=== PATIENT | female | born 1985 | race Caucasian/White ===

== ENCOUNTER 2020-06-19 01:13 | Emergency (ER) | payer BC, MEDICAID, SELFPAY ==
[2020-06-19 01:17] VITALS: BP 110/85; PULSE 96; RESP 16; TEMP 36.2; O2SAT 100
--- NOTE | 2020-06-19 01:26 | ED.GENADULT ---
HPI - General Adult General Chief complaint: Eye Problems Stated complaint: eye issues Time Seen by Provider: 06/19/20 01:16 History of Present Illness HPI narrative: Patient is a 34-year-old female who presents the emergency department with chief complaint of right eye pain. Patient reports that several days ago she noticed that her eye started getting irritated. 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 Patient denies fever denies chills reports that her eye is watering and it feels very irritated. Related Data Allergies Allergy/AdvReac Type Severity Reaction Status Date / Time adhesive Allergy Mild Rash Verified 06/19/20 01:21 amoxicillin Allergy Unknown Skin Verified 06/19/20 01:21 Reaction cephalexin Allergy Unknown Nausea Verified 06/19/20 01:21 Cephalosporins Allergy Unknown DIARRHEA Verified 06/19/20 01:21 metformin Allergy Unknown forgetfulness, Verified 06/19/20 01:21 lack of strength nitrofurantoin Allergy Unknown Nausea Verified 06/19/20 01:21 oseltamivir Allergy Unknown Nausea Verified 06/19/20 01:21 Penicillins Allergy Unknown HIVES, Verified 06/19/20 01:21 THROAT ITCHING vancomycin Allergy Unknown Unknown Verified 06/19/20 01:21 OSELTAMIVIR PHOSPHATE Allergy Unknown VOMITING Uncoded 06/19/20 01:21 Review of Systems Review of Systems: Narrative: A 10 system review of systems was completed on the patient and is negative except for what is stated in the HPI. Nursing and ancillary documentation was reviewed. [facility] Social History Social History Smoking status: Smoker, status unknown Alcohol intake: current Comments Patient has past medical history significant for corneal ulcer Social history the patient reports that she smokes cigarettes denies illicit drug use Exam Narrative: Exam Narrative: GENERAL: Well-appearing, well-nourished, and in no acute distress. HEAD: Normocephalic, atraumatic. EYES: PERRLA and EOMI. the right conjunctivois injected that there is a small corneal ulcer present at the 1 o'clock position ENT: Nares clear, no rhinorrhea or epistaxis. Mucous membranes moist. NECK: Supple. CHEST: Clear to auscultation. No respiratory distress. HEART: Regular rate and rhythm. No murmur heard. Normal peripheral pulses. ABDOMEN: Soft, nontender, nondistended, normal active bowel sounds. EXTREMITIES: Normal range of motion. No edema. SKIN: Warm, dry, no rash. NEURO: No focal deficits. Alert and oriented x3. PSYCH: Normal mood and affect. Course Vital Signs Vital signs: Vital Signs Temperature 36.2 C L 06/19/20 01:17 Pulse Rate 96 06/19/20 01:17 Respiratory Rate 16 06/19/20 01:17 Blood Pressure 110/85 06/19/20 01:17 Pulse Oximetry 100 06/19/20 01:17 Temperature 36.2 C L 06/19/20 01:17 Pulse Rate 96 06/19/20 01:17 Respiratory Rate 16 06/19/20 01:17 Blood Pressure 110/85 06/19/20 01:17 Pulse Oximetry 100 06/19/20 01:17 Medical Decision Making Vital Signs Vital Signs: Vital Signs Temperature 36.2 C L 06/19/20 01:17 Pulse Rate 96 06/19/20 01:17 Respiratory Rate 16 06/19/20 01:17 Blood Pressure 110/85 06/19/20 01:17 Pulse Oximetry 100 06/19/20 01:17 Temperature 36.2 C L 06/19/20 01:17 Pulse Rate 96 06/19/20 01:17 Respiratory Rate 16 06/19/20 01:17 Blood Pressure 110/85 06/19/20 01:17 Pulse Oximetry 100 06/19/20 01:17 Discharge Plan Discharge Clinical Impression: Conjunctivitis Qualifiers: Conjunctivitis type: acute Acute conjunctivitis type: unspecified Laterality: right Qualified Code(s): H10.31 - Unspecified acute conjunctivitis, right eye Corneal ulcer Qualifiers: Laterality: right Qualified Code(s): H16.001 - Unspecified corneal ulcer, right ey
[2020-06-19] MEDS: GENTAMICIN SULFATE 0.3% OP SOL 5 ML BTL 1 DROP RIGHT EYE (01:41)
--- NOTE | 2020-06-19 01:46 | PC.NURSE ---
Patient requesting to wait to be discharged to ensure she does not have a reaction to the antibiotic.
== END 2020-06-19 02:04 | disposition home or self-care (01) ==
LOC: ANHED 01:33
PROVIDERS: Emergency Provider Emergency Medicine
DX: H10.31 Unspecified acute conjunctivitis, right eye (principal); H16.001 Unspecified corneal ulcer, right eye
CPT/HCPCS: 99283; A9270

== ENCOUNTER 2023-02-13 09:42 | Emergency (ER) | payer BC, SELFPAY ==
--- NOTE | 2023-02-13 09:54 | ED.URI ---
HPI - URI/Sore Throat General Chief Complaint: Upper Respiratory Infection Stated Complaint: Sinus Time Seen by Provider: 02/13/23 09:54 Source: patient Mode of arrival: ambulatory Limitations: no limitations History of Present Illness HPI Narrative: Patient is a 37-year-old female who presents with 3 days of sinus pain, pressure. States she has taken TheraFlu, Tylenol cold and flu and Zyrtec with no relief. Denies any ear pain, sore throat, cough, fever, chills, nausea, vomiting, diarrhea. Does report unresolved headache from sinus pressure. Related Data Allergies Allergy/AdvReac Type Severity Reaction Status Date / Time adhesive Allergy Mild Rash Verified 02/13/23 09:44 amoxicillin Allergy Unknown Skin Verified 02/13/23 09:44 Reaction cephalexin Allergy Unknown Nausea Verified 02/13/23 09:44 Cephalosporins Allergy Unknown DIARRHEA Verified 02/13/23 09:44 metformin Allergy Unknown forgetfulness, Verified 02/13/23 10:02 lack of strength nitrofurantoin Allergy Unknown Nausea Verified 02/13/23 09:44 oseltamivir Allergy Unknown Nausea Verified 02/13/23 09:44 Penicillins Allergy Unknown HIVES, Verified 02/13/23 09:44 THROAT ITCHING vancomycin Allergy Unknown Unknown Verified 02/13/23 09:44 OSELTAMIVIR PHOSPHATE Allergy Unknown VOMITING Uncoded 02/13/23 09:44 Review of Systems Review of Systems: All systems reviewed & are unremarkable except as noted in HPI and below Constitutional: Constitutional: Denies body ache(s), Denies chills, Denies fatigue, Denies fever(s), Reports headache(s), Denies malaise and Denies weakness Eyes: Eyes: Denies blurry vision, Denies itchy eyes and Denies loss of vision ENT: Denies otalgia, Denies headache(s), Reports nasal congestion, Reports sinus pain, Reports sinus pressure and Denies sore throat Cardiovascular: Cardiovascular: Denies chest pain, Denies irregular heart rhythm and Denies dyspnea Respiratory: Respiratory: Denies cough and Denies dyspnea Gastrointestinal: Gastrointestinal: Denies abdominal pain, Denies diarrhea, Denies nausea and Denies vomiting Musculoskeletal: Musculoskeletal: Denies back pain, Denies myalgias and Denies arthralgias Integumentary/Breasts: Skin/Breast: Denies pruritus and Denies rash Neurologic: Denies headache(s), Denies loss of vision and Denies weakness Psychiatric: Psychiatric: Reports no additional psychiatric complaints Endocrine: Endocrine: Denies fatigue Allergic/Immunologic: Allergic/Immunologic: Denies itchy eyes PMFSH Social History Social History Smoking status: Smoker, status unknown Alcohol intake: current Comments At time of signature, agree with nursing past medical, surgical, social and family history. There is no relevant family history pertinent to the presenting complaint. Exam Const: General: cooperative, healthy appearing, comfortable, no acute distress and well nourished Nutritional Appearance: well nourished Orientation/consciousness: patient oriented x3 Limitations: no limitations HENMT: Head: normal to inspection, normocephalic and atraumatic Ears: hearing grossly normal bilaterally, external ears normal, TM's normal bilaterally, EAC's normal and no periauricular adenopathy Face/Nose/Sinus: Normal external nose present, Abnormal mucous membranes and turbinates present erythematous bilateral and diffuse, normal facial exam, face symmetric and Facial tenderness on exam of face and sinuses Face and sinus: normal facial exam, sinuses nontender and face symmetric Mouth: Yes Normal oral and palatal mucosa present, Yes lip normal, Yes tongue normal, Yes Normal salivary glands and ducts present, Yes oropharynx normal and Yes moist mucous membranes Teeth and gingiva: dentition normal Throat: posterior oropharynx normal, tonsils normal and uvula midline Eyes: General: appearance normal, both eyes and all related structures Alignment and Position: alig
[2023-02-13 10:00] VITALS: BP 119/82; PULSE 96; RESP 18; TEMP 37.1; O2SAT 100
== END 2023-02-13 10:10 | disposition home or self-care (01) ==
PROVIDERS: Emergency Provider Nurse Practitioner Family; PCP Family Medicine
DX: J01.00 Acute maxillary sinusitis, unspecified (principal); N80.9 Endometriosis, unspecified
CPT/HCPCS: 99213; G0463

== ENCOUNTER 2023-02-21 08:45 | Emergency (ER) | payer BC, SELFPAY ==
--- NOTE | 2023-02-21 08:55 | ED.URI ---
HPI - URI/Sore Throat General Chief Complaint: Upper Respiratory Infection Stated Complaint: Sinus Problems Time Seen by Provider: 02/21/23 08:59 Source: patient, RN notes reviewed and old records reviewed Mode of arrival: ambulatory Limitations: no limitations History of Present Illness HPI Narrative: 37-year-old female presents to the [facility] for sinus issues. Was evaluated on the 13 of February, 8 days ago, prescribed doxycycline. States that she finished her doxycycline. Is taking Zyrtec. Patient states she started coughing more frequently. Related Data Home Medications Medication Instructions Recorded Confirmed cetirizine 10 mg capsule (Zyrtec) 10 mg PO DAILY 02/21/23 02/21/23 Allergies Allergy/AdvReac Type Severity Reaction Status Date / Time adhesive Allergy Mild Rash Verified 02/13/23 09:44 amoxicillin Allergy Unknown Skin Verified 02/13/23 09:44 Reaction cephalexin Allergy Unknown Nausea Verified 02/13/23 09:44 Cephalosporins Allergy Unknown DIARRHEA Verified 02/13/23 09:44 metformin Allergy Unknown forgetfulness, Verified 02/13/23 10:02 lack of strength nitrofurantoin Allergy Unknown Nausea Verified 02/13/23 09:44 oseltamivir Allergy Unknown Nausea Verified 02/13/23 09:44 Penicillins Allergy Unknown HIVES, Verified 02/13/23 09:44 THROAT ITCHING vancomycin Allergy Unknown Unknown Verified 02/13/23 09:44 OSELTAMIVIR PHOSPHATE Allergy Unknown VOMITING Uncoded 02/13/23 09:44 Review of Systems Review of Systems: All systems reviewed & are unremarkable except as noted in HPI and below Constitutional: Constitutional: Reports no additional constitutional complaints Eyes: Eyes: Reports no additional eye complaints ENT: Reports as per HPI Cardiovascular: Cardiovascular: Reports no additional cardiovascular complaints, Denies chest pain and Denies dyspnea Respiratory: Respiratory: Reports as per HPI, Denies chest congestion, Reports cough and Denies dyspnea Gastrointestinal: Gastrointestinal: Reports no additional gastrointestinal complaints, Denies abdominal pain, Denies nausea and Denies vomiting Musculoskeletal: Musculoskeletal: Reports no additional musculoskeletal complaints Integumentary/Breasts: Skin/Breast: Reports system reviewed and no additional complaints, except as docu Neurologic: Reports system reviewed and no additional complaints, except as documented Psychiatric: Psychiatric: Reports no additional psychiatric complaints Allergic/Immunologic: Allergic/Immunologic: Reports no additional allergic/immunologic complaints PMFSH Social History Social History (Reviewed 02/21/23 @ 19:29 by GUERDA Young Smoking status: Smoker, status unknown Alcohol intake: current Comments At the time of my signature, I reviewed and agree with the nursing past medical, surgical, social, and family history. There is no relevant family history pertinent to the patient complaint. Exam Const: General: cooperative, healthy appearing, comfortable, no acute distress, well developed, alert and well nourished Nutritional Appearance: well nourished Orientation/consciousness: patient oriented x3 Limitations: no limitations HENMT: Head: normal to inspection Ears: hearing grossly normal bilaterally, external ears normal, TM's normal bilaterally and EAC's normal Face/Nose/Sinus: Normal external nose present, Normal nares present, Normal nasal mucous membranes and turbinates present, normal facial exam and face symmetric Face and sinus: normal facial exam and face symmetric Mouth: Yes Normal oral and palatal mucosa present, Yes lip normal and Yes moist mucous membranes Throat: posterior oropharynx normal, uvula midline and postnasal drainage Eyes: General: appearance normal, both eyes and all related structures Alignment and Position: alignment normal Periorbital: periorbital findings normal Pupils: Equal, round and reactive pupils present EOM: EOMs intact bilaterally Neck:
[2023-02-21 08:58] VITALS: BP 127/88; PULSE 90; RESP 18; TEMP 36.9; O2SAT 100
== END 2023-02-21 09:18 | disposition home or self-care (01) ==
PROVIDERS: Emergency Provider Nurse Practitioner
DX: J40 Bronchitis, not specified as acute or chronic (principal); J01.90 Acute sinusitis, unspecified
CPT/HCPCS: 99213; G0463

== ENCOUNTER 2023-07-04 14:53 | Outpatient (CLI) | payer BC, SELFPAY ==
--- NOTE | ~2023-07-04 | MM_ITS ---
EXAMINATION: MM screening raquel BI w jason HISTORY: Screening mammogram TECHNIQUE: Craniocaudal and mediolateral oblique 3-D tomosynthesis images were obtained and synthetic 2-D images were generated. CAD analysis was submitted and interpreted. COMPARISON: No prior mammogram is available for comparison at this institution. BREAST PARENCHYMAL COMPOSITION: There are scattered areas of fibroglandular density. FINDINGS: There is no evidence of suspicious mass, calcification, or architectural distortion to sugg est malignancy in either breast. There has been no suspicious interval change. IMPRESSION: 1. No mammographic evidence of malignancy. 2. Recommend routine screening mammography in one year. BI-RADS Category 1: Negative Reviewed, dictated and finalized at location A. [employer]
== END 2023-07-04 14:54 ==
PROVIDERS: PCP Family Medicine; Visit Provider Family Medicine
DX: Z12.31 Encounter for screening mammogram for malignant neoplasm of breast (principal)
CPT/HCPCS: 77063; 77067

== ENCOUNTER 2023-10-01 15:48 | Outpatient (CLI) | payer BC, SELFPAY ==
--- NOTE | ~2023-10-01 | XR_ITS ---
AP view of the pelvis and AP and lateral views of the bilateral hips Clinical history: Pain Findings: No acute fracture or dislocation is seen. Osseous alignment is anatomic. Bilateral hip and SI joint spaces are preserved. Soft tissues are unremarkable. Impression: No significant abnormality is seen. Reviewed, dictated and finalized at location . Impression: No significant abnormality is seen.
== END 2023-10-01 15:49 ==
PROVIDERS: PCP Family Medicine; Visit Provider Family Medicine
DX: M25.551 Pain in right hip (principal); M25.552 Pain in left hip
CPT/HCPCS: 73521

== ENCOUNTER 2024-01-16 14:45 | Emergency (ER) | payer BC, SELFPAY ==
[2024-01-16 15:03] VITALS: BP 112/64; PULSE 72; RESP 16; TEMP 36.5; O2SAT 99
[2024-01-16 15:08] LABS: EDUAAPPEAR Clear; EDUABILI Negative (Negative); EDUABLOOD Trace (Negative); EDUACOLOR1 Yellow; EDUAGLUCOSE Negative (Negative); EDUAKETONE Negative (Negative); EDUALEUKO 1+ (Negative); EDUANITRATE Negative (Negative); EDUAPH 5.5; EDUAPROTEIN Negative (Negative); EDUAUROBILI 0.2
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
== END 2024-01-16 15:44 | disposition home or self-care (01) ==
PROVIDERS: Emergency Provider Nurse Practitioner Family; PCP Family Medicine
DX: N39.0 Urinary tract infection, site not specified (principal); F17.210 Nicotine dependence, cigarettes, uncomplicated; K76.0 Fatty (change of) liver, not elsewhere classified
CPT/HCPCS: 81003; 87086; 87088; 99213; G0463

== ENCOUNTER 2024-03-21 12:45 | Emergency (ER) | payer BC, SELFPAY ==
--- NOTE | ~2024-03-21 | XR_ITS ---
EXAMINATION: XR chest 2V DATE: 03/21/2024 13:19 INDICATION: Shortness of breath and cough TECHNIQUE: frontal and lateral views of the chest were obtained. COMPARISON: None FINDINGS: The lungs are clear with no focal airspace opacities, pulmonary edema, pleural effusion or pneumothor ax. The cardiomediastinal silhouette is normal. Mild thoracic spondylosis. IMPRESSION: 1. No acute cardiopulmonary disease. Reviewed, dictated and finalized at location A. EW SPECIALIST
[2024-03-21 12:53] VITALS: BP 120/71; PULSE 110; RESP 18; TEMP 37; O2SAT 100
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
== END 2024-03-21 13:55 | disposition home or self-care (01) ==
PROVIDERS: Emergency Provider Nurse Practitioner; PCP Family Medicine
DX: J06.9 Acute upper respiratory infection, unspecified (principal); F17.210 Nicotine dependence, cigarettes, uncomplicated; K76.0 Fatty (change of) liver, not elsewhere classified
CPT/HCPCS: 71046; 99213; G0463

== ENCOUNTER 2024-10-15 00:58 | Emergency (ER) | payer BC, SELFPAY ==
--- NOTE | ~2024-10-15 | XR_ITS ---
Clinical Indication: Cough PA and lateral views of the chest: Comparison: 03/21/2024 Findings: The lungs are clear, without evidence of focal consolidation or pleural effusion. Cardiome diastinal silhouette is within normal limits. Bones and soft tissues are unremarkable. Impression: Normal chest. Reviewed, dictated and finalized at location . Impression: Normal chest.
--- OUTSIDE RECORDS SUMMARY | 2024-10-15 01:00 | XMS_ITS | Clinical Summary ---
Author Organization [facility] Address [address] [place] [address] Care Team Providers Care Quality Improvement Consultant Name Role Phone Diane Christie MD Primary Care Provider [phone] Allergies Active Allergy Reactions Criticality Noted Date Comments Cephalosporins Diarrhea,Nausea and Vomiting Low 03/10/2020 Nitrofurantoin Nausea and Vomiting Low 03/10/2020 Reaction: SEVERE VOMITTING AND DIARRHEA, Nitrofurantoin Monohyd/M-Cryst Nausea and Vomiting Low 11/13/2023 Oseltamivir Nausea and Vomiting Low 11/13/2023 Penicillins Hives High 03/10/2020 Vancomycin Anaphylaxis High 03/10/2020 Reaction: ANAPHYLAXIS Medications tramadol HCl/acetaminophe n (TRAMADOL-ACETAM INOPHEN ORAL) Take 25 mg by mouth every 8 hours as needed. Active cyclobenzaprine (FLEXERIL) 5 mg Tablet Take 5 mg by mouth 3 times daily as needed for Spasm. Active Active Problems No known active problems Encounters Date Type Department Care Team Description 10/12/2024 External Device Data [facility] Provider, Abstract 09/21/2024 External Device Data [facility] Provider, Abstract 09/21/2024 External Device Data [facility] Provider, Abstract 09/15/2024 External Device Data [facility] Provider, Abstract 09/14/2024 External Device Data [facility] Provider, Abstract 08/10/2024 External Device Data [facility] Provider, Abstract 07/27/2024 External Device Data [facility] Provider, Abstract from Last 3 Months Family History Medical History Relation Name Comments No Known Problems Child 1 No Known Problems Child 2 No Known Problems Father Diabetes Mother No Known Problems Sister Relation Name Status Comments Child 1 Alive Child 2 Alive Father Alive Mother Alive Sister Alive Social History Tobacco Use Types Packs/Day Years Used Date Smoking Tobacco: Every Day Cigarettes 0.5 6.4 Started: 05/14/2018 Alcohol Use Standard Drinks/Week Comments Yes 0 (1 standard drink = 0.6 oz pur e alcohol) socially Comments Unknown Sex and Gender Information Value Date Recorded Sex Assigned at Not on file Legal Sex Female 1:01 PM CDT Gender Identity Not on file Sexual Orientation Not on file Last Filed Vital Signs Vital Sign Reading Time Taken Comments Blood Pressure 121/69 11/13/2023 10:44 AM CDT Pulse 110 11/13/2023 10:44 AM CDT Temperature 36.8 C (98.2 F) 11/13/2023 10:44 AM CDT Respiratory Rate - - Oxygen Saturation 96% 11/13/2023 10:44 AM CDT Inhaled Oxygen Concentration - - Weight 83.9 kg (185 lb) 11/13/2023 10:44 AM CDT Height 162.6 cm (5' 4) 11/13/2023 10:44 AM CDT Body Mass Index 31.76 11/13/2023 10:44 AM CDT Plan of Treatment Health Maintenance Due Date Last Done Comments Pre-Diabetes and Diabetes Screening 1984 DTAP/TDAP/TD VACCINES (1 - Tdap) 09/29/2003 HEPATITIS B VACCINES (1 of 3 - 19+ 3-dose series) 09/29/2003 HPV/Cotest (21-29) 2005 CERVICAL CANCER SCREENING 2014 HPV/Cotest (30-65) 2014 PAP SMEAR 2014 INFLUENZA VACCINE (#1) 2023 BREAST CANCER SCREENING 2024 HPV VACCINES Aged Out No longer eligi ble based on patient's age to complete this topic Insurance BCBS BLUE ACCESS/TRUE BLUE PPO Care Teams Quality Improvement Consultant Relationship Specialty Start Date End Date Diane Christie MD [facility] [address] [id number] PCP - General Family Practice 10/22/23
--- OUTSIDE RECORDS SUMMARY | 2024-10-15 01:00 | XMS_ITS | Encounter Summary ---
Author Organization [facility] Address [address] [place] [address] Care Team Providers Care Health Information Technologist Name Role Phone Diane Christie MD Primary Care Provider [phone] Encounter Details Date Type Department Care Team (Late st Contact Info) Description 10/12/2024 External Device Data [facility] Provider, Abstract NO ADDRESS ON FILE Social History Tobacco Use Types Packs/Day Years [...] on file Sexual Orientation Not on file documented as of this encounter Plan of Treatment Not on file documented as of this encounter Visit Diagnoses Not on filedocumented in this encounter Care Teams Health Information Technologist Relationship Specialty Start Date End Date Diane Christie MD [facility] [address] [place] [phone] PCP - General Family Practice 10/22/23 documented as of this encounter
--- OUTSIDE RECORDS SUMMARY | 2024-10-15 01:00 | XMS_ITS | Clinical Summary ---
Author Organization [facility] Address [address] [place] [address] Care Team Providers Care Electrical Products Sales Engineer Name Role Phone Unavailable Primary Care Provider Unavailabl e Source Comments [facility],non-owned Affiliates and Associated Physician Practices is amultiple site organization consisting of ambulatory clinics and hospital sitesin [place], [place], [place] and [place]. This disclosure is being madepursuant to the Care Everywhere program and may not contain all information available regarding this patient. Last updated 18.[facility] Allergies Active Allergy Reactions Criticality Noted Date Comments Adhesive Sensitivity Rash Medium 03/10/2020 Reaction: BLISTERS, Cephalosporins Diarrhea,Vomiting 03/10/2020 Nitrofurantoin Other 03/10/2020 Reaction: SEVERE VOMITTING AND DIARRHEA, Penicillins Urticaria Medium 03/10/2020 Vancomycin Anaphylaxis High 03/10/2020 Reaction: ANAPHYLAXIS Medications * Be aware that medications may not be up to date on this document. Alwaysverify current medications with the patient. 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 PROTECTION SUPERINTENDENT Gender Identity Not on file Sexual Orientation Not on file Last Filed Vital Signs Vital Sign Reading Time Taken Comments Blood Pressure 124/80 03/10/2020 10:25 AM PLANT PROTECTION SUPERINTENDENT Pulse 93 03/10/2020 10:25 AM PLANT PROTECTION SUPERINTENDENT Temperature 36.7 C (98.1 F) 03/10/2020 10:25 AM PLANT PROTECTION SUPERINTENDENT Respiratory Rate 16 03/10/2020 10:25 AM PLANT PROTECTION SUPERINTENDENT Oxygen Saturation 98% 03/10/2020 10:25 AM PLANT PROTECTION SUPERINTENDENT Inhaled Oxygen Concentration - - Weight 81.6 kg (180 lb) 03/10/2020 10:25 AM PLANT PROTECTION SUPERINTENDENT Height 163.8 cm (5' 4.5) 03/10/2020 10:25 AM CS T Body Mass Index 30.42 03/10/2020 10:25 AM PLANT PROTECTION SUPERINTENDENT Plan of Treatment Health Maintenance Due Date Last Done Comments LIPID TESTING 1984 MAMMOGRAM 1984 HIV SCREENING 09/29/1999 HEPATITIS C SCREENING 09/24/2002 DTAP/TDAP/TD VACCINES (1 - Tdap) 09/29/2003 HEPATITIS B VACCINE (1 of 3 - 19+ 3-dose series) 09/29/2003 COVID-19 VACCINE ( - 2023-2 5 season) 2023 DEPRESSION SCREENING 04/28/2024 INFLUENZA VACCINE (Season Ended) 2024 ZOSTER VACCINE (1 of 2) 2034 HIB VACCINE Aged Out No longer eligi ble based on patient's age to complete this topic HPV VACCINE Aged Out No longer eligi ble based on patient's age to complete this topic MENINGOCOCCAL (Group B) VACC INE SHARED DECISION-MAKING Aged Out No longer eligibl e based on patient's age to complete this topic MENINGOCOCCAL GROUPS A/C/Y/W VACCINE Aged Out No longer eligible b ased on patient's age to complete this topic PNEUMOCOCCAL VACCINE Aged Out No long er eligible based on patient's age to complete this topic Insurance MEDICAID - [place]
[2024-10-15 01:07] VITALS: BP 135/87; PULSE 89; TEMP 36.7; O2SAT 99
[2024-10-15 01:10] VITALS: BP 135/87; PULSE 89; RESP 20; TEMP 36.7; O2SAT 99
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
--- NOTE | 2024-10-15 01:29 | ECG_ITS ---
Test Date: 2024-10-15 02:01:01 Measurements Intervals Marlow Rate: 87 P: 49 CO: 123 QRS: 13 QRSD: 87 T: 24 QT: 328 QTc: 396 Interpretive Statements SINUS RHYTHM LOW QRS VOLTAGE IN PRECORDIAL LEADS BASELINE ARTIFACT- III BORDERLINE ECG No previous ECG available for comparison Electronically Signed On 10-15-2024 07:16:25 CDT by Jose Erazo D.O.
[2024-10-15 01:42] VITALS: PULSE 92; RESP 18
[2024-10-15] MEDS: IPRATROPIUM 0.5 MG/ALBUTEROL SULFATE 2.5 MG AMPUL.NEB 3 ML INHALATION (01:42)
[2024-10-15 01:53] VITALS: PULSE 96; RESP 18
[2024-10-15 02:50] VITALS: BP 116/72; PULSE 81; O2SAT 96
[2024-10-15 03:25] LABS: Influenza A QL RT-PCR Negative (Negative); Influenza B QL RT-PCR Negative (Negative); RSV RNA, RT-PCR Negative (Negative); SARS-CoV-2 RNA PCR Negative (Negative)
[2024-10-15 03:26] LABS: Alanine Aminotransferase 64 U/L (6-35); Albumin Level 3.7 g/dL (3.5-5.1); Alkaline Phosphatase 77 U/L (38-126); Anion Gap 8 mmol/L (4-12); Aspartate Amino Transferase 32 U/L (14-36); Bilirubin,Total 0.2 mg/dL (0.2-1.3); Blood Urea Nitrogen 13 mg/dL (7-17); Calcium 9.4 mg/dL (8.4-10.2); Carbon Dioxide 25 mmol/L (22-30); Chloride 106 mmol/L (98-107); Estimated CRCL calculation 111 ml/min; Estimated Glomerular Filt Rate > 60; Glucose 103 mg/dL (65-110); NT Pro B Type Natriuretic Pept 31 pg/mL (19.9-100); Potassium 4.5 mmol/L (3.4-5.0); Sodium 139 mmol/L (137-145); Total Protein 6.3 g/dL (6.3-8.2); Troponin I < 0.012 ng/mL (0.000-0.034)
[2024-10-15 03:32] LABS: D Dimer 0.34 ug/mL (<0.48)
[2024-10-15 03:35] LABS: INR 0.9; Partial Thromboplastin Time 27.8 Seconds (22.3-36.8)
[2024-10-15 03:48] LABS: Basophils Absolute Auto 0.1 K/mm3 (0.0-0.1); Basophils Percent Auto 0.7 % (0.2-1.2); Eosinophils Absolute Auto 0.3 K/mm3 (0-0.3); Eosinophils Percent Auto 2.4 % (0-4.4); Hematocrit 41.9 % (37.0-47.0); Hemoglobin 13.1 g/dL (12.0-15.0); Immature Granulocyte Absolute 0.27 K/mm3 (0.00-0.031); Immature Granulocyte Percent A 1.9 % (0-0.5); Lymphocytes Absolute Auto 6.34 K/mm3 (0.9-3.2); Lymphocytes Percent Auto 44.1 % (18.3-44.2); Mean Corpuscular HGB Conc 31.3 g/dl (32-36); Mean Corpuscular Volume 83.1 fl (80-100); Mean Platelet Volume 9.8 fl (7.4-10.4); Monocytes Absolute Auto 1.2 K/mm3 (0.1-0.6); Monocytes Percent Auto 8.6 % (2.6-8.5); Neutrophils Absolute Auto 6.1 K/mm3 (1.3-6.7); Neutrophils Percent Auto 42.3 % (45.5-73.1); Platelet Count Result 352 k/mm3 (150-375); Red Blood Count 5.04 M/mm3 (4.2-5.4); Red Cell Distribution Width 13.6 % (11.5-14.5); White Blood Count 14.4 K/mm3 (4.5-10.0)
[2024-10-15 04:10] VITALS: BP 113/79; PULSE 82; RESP 17; O2SAT 99
--- NOTE | 2024-10-15 04:12 | PC.NURSE ---
Patient given 100mg doxycycline Hyclate per PA. GREGORIO Kenyon currently not available due to down time.
== END 2024-10-15 04:10 | disposition home or self-care (01) ==
PROVIDERS: Emergency Provider Physician Assistant; PCP Family Medicine
DX: J20.9 Acute bronchitis, unspecified (principal); F17.210 Nicotine dependence, cigarettes, uncomplicated; Z20.822 Contact with and (suspected) exposure to COVID-19
CPT/HCPCS: 36415; 71046; 80053; 83880; 84484; 85025; 85380; 85610; 85730; 87637; 93005; 94640; 99283; A9270

== ENCOUNTER 2025-01-18 15:42 | Outpatient (CLI) | payer OTHER, SELFPAY ==
--- NOTE | ~2025-01-18 | MM_ITS ---
EXAMINATION: MM screening raquel BI w jason HISTORY: Screening TECHNIQUE: Craniocaudal and mediolateral oblique 3-D tomosynthesis images were obtained and synthetic 2-D images were generated. CAD analysis was submitted and interpreted. COMPARISON: 07/04/2023 BREAST PARENCHYMAL COMPOSITION: The breasts are heterogeneously dense, which may obscure small masses. FINDINGS: There is no evidence of suspicious mass, calcification, or architectural distortion in either breast to suggest malignancy. There has been no significant interval change. IMPRESSION: 1. No mammographic evidence of malignancy. Recommend routine screening mammography in one year. BI-RADS Category 1: Negative Reviewed, dictated and finalized at location Q. IMPRESSION: 1. No mammographic evidence of malignancy. Recommend routine screening mammogra phy in one year. BI-RADS Category 1: Negative
== END 2025-01-18 15:43 | disposition home or self-care (01) ==
LOC: MICIMG 15:43
PROVIDERS: PCP Family Medicine; Visit Provider Family Medicine
DX: Z12.31 Encounter for screening mammogram for malignant neoplasm of breast (principal)
CPT/HCPCS: 77063; 77067